=== PATIENT | female | born 1960 | race Hispanic/Latino ===

== ENCOUNTER 2017-03-23 21:49 | Emergency (ER) | payer MEDICAID ==
[~2017-03-23 21:49] MED LIST: CEPH500C2 PO; FLUT15OI4 NASAL; IPRA4AER IH; LISI-613 PO; METH4TAB3 PO; PANT40TA PO; TRAZ150T79 PO
[2017-03-23 22:25] LABS: BASOPHILS % (AUTO) 0.5 % (0.0-5.0); EOSINOPHILS % (AUTO) 1.2 % (0.0-8.0); HEMATOCRIT 33.2 % (36-48); LYMPHOCYTES % (AUTO) 11.4 % (21.0-51.0); MEAN CORPUSCULAR HEMOGLOBIN 30.4 pg (27.0-33.0); MEAN CORPUSCULAR HGB CONC 34.5 g/dL (32.0-36.0); MEAN CORPUSCULAR VOLUME 88.3 fL (79-99); MONOCYTES % (AUTO) 4.2 % (3.0-13.0); NEUTROPHILS % (AUTO) 82.7 % (40.0-77.0); PLATELET COUNT (AUTO) 263 K/uL (130-400); RED BLOOD CELL COUNT(AUTO) 3.76 MIL/uL (4.00-5.50); RED CELL DISTRIBUTION WIDTH 14.1 % (11.0-15.5)
[2017-03-23 22:40] LABS: INR 0.92 (0.85-1.15); PARTIAL THROMBOPLASTIN TIME 30.7 SEC (26.3-35.5); PROTHROMBIN TIME 9.7 SEC (9.6-11.6)
[2017-03-23 22:41] LABS: CREATININE 0.6 mg/dL (0.5-1.5); POTASSIUM 3.8 mmol/L (3.5-5.1)
[2017-03-23 22:54] LABS: ALBUMIN 3.3 g/dL (3.5-5.0); BILIRUBIN,TOTAL 0.2 mg/dL (0.2-1.0); TOTAL PROTEIN, SERUM 7.3 g/dL (6.0-8.3)
[2017-03-23] MEDS ORDERED: LIDOCAINE HCL 2% VISCOUS 15 ML UDCUP ONE (23:03)
[2017-03-23] MEDS ORDERED: MAG HYDROX/AL HYDROX/SIMETH ES 30 ML SUSP UDCUP ONE (23:03)
== END 2017-03-24 02:03 | disposition home or self-care (01) ==
LOC: EDH 21:49
DX: K29.00 Acute gastritis without bleeding (principal); E87.1 Hypo-osmolality and hyponatremia; J44.9 Chronic obstructive pulmonary disease, unspecified; I10 Essential (primary) hypertension; M19.90 Unspecified osteoarthritis, unspecified site; Z88.1 Allergy status to other antibiotic agents
CPT/HCPCS: 36415; 71045; 80053; 82550; 82553; 83874; 84484 ×2; 85025; 85610; 85730; 93005 ×2; 99291; G0480

== ENCOUNTER 2017-04-03 15:47 | Emergency (ER) | payer MEDICAID ==
[2017-04-03 16:10] LABS: BASOPHILS % (AUTO) 0.8 % (0.0-5.0); EOSINOPHILS % (AUTO) 1.2 % (0.0-8.0); HEMATOCRIT 36.1 % (36-48); LYMPHOCYTES % (AUTO) 18.8 % (21.0-51.0); MEAN CORPUSCULAR HEMOGLOBIN 30.7 pg (27.0-33.0); MEAN CORPUSCULAR HGB CONC 34.3 g/dL (32.0-36.0); MEAN CORPUSCULAR VOLUME 89.3 fL (79-99); MONOCYTES % (AUTO) 3.4 % (3.0-13.0); NEUTROPHILS % (AUTO) 75.8 % (40.0-77.0); PLATELET COUNT (AUTO) 463 K/uL (130-400); RED BLOOD CELL COUNT(AUTO) 4.05 MIL/uL (4.00-5.50); RED CELL DISTRIBUTION WIDTH 14.6 % (11.0-15.5); WHITE BLOOD COUNT (AUTO) 10.7 K/uL (4.8-10.8)
[2017-04-03 16:29] LABS: ALBUMIN 3.5 g/dL (3.5-5.0); BILIRUBIN,TOTAL 0.1 mg/dL (0.2-1.0); CREATININE 0.5 mg/dL (0.5-1.5); POTASSIUM 4.2 mmol/L (3.5-5.1); TOTAL PROTEIN, SERUM 7.8 g/dL (6.0-8.3)
== END 2017-04-03 17:24 | disposition home or self-care (01) ==
LOC: EDH 15:47
DX: F10.129 Alcohol abuse with intoxication, unspecified (principal); K29.70 Gastritis, unspecified, without bleeding; E87.1 Hypo-osmolality and hyponatremia; J44.9 Chronic obstructive pulmonary disease, unspecified; M19.90 Unspecified osteoarthritis, unspecified site; Z88.1 Allergy status to other antibiotic agents; Z72.0 Tobacco use
CPT/HCPCS: 36415; 71045; 80053; 82550; 82553; 83690; 84484; 85025; 93005; 99285; G0480

== ENCOUNTER 2018-09-16 13:30 | Emergency (ER) | payer MEDICAID ==
[2018-09-16] MEDS ORDERED: DOXYCYCLINE HYCLATE 100 MG TABLET PO ONE (13:54)
[2018-09-16] MEDS ORDERED: METHYLPREDNISOLONE SOD SUCC 125MG/2ML VIAL ONE (13:54)
[2018-09-16] MEDS ORDERED: CEFTRIAXONE SODIUM 1 GM ONE (13:55)
[2018-09-16] MEDS ORDERED: IPRATROPIUM/ALBUTEROL SULFATE 3 ML SOLUTION IH ONE ×2 (13:55→17:07)
[2018-09-16 14:01] LABS: BASOPHILS % (AUTO) 0.4 % (0.0-5.0); EOSINOPHILS % (AUTO) 1.2 % (0.0-8.0); HEMATOCRIT 35.1 % (36-48); LYMPHOCYTES % (AUTO) 6.2 % (21.0-51.0); MEAN CORPUSCULAR HEMOGLOBIN 32.1 pg (27.0-33.0); MEAN CORPUSCULAR HGB CONC 33.9 g/dL (32.0-36.0); MEAN CORPUSCULAR VOLUME 94.7 fL (79-99); NEUTROPHILS % (AUTO) 90.2 % (40.0-77.0); PLATELET COUNT (AUTO) 268 K/uL (130-400); RED BLOOD CELL COUNT(AUTO) 3.71 MIL/uL (4.00-5.50); RED CELL DISTRIBUTION WIDTH 13.1 % (11.0-15.5); WHITE BLOOD COUNT (AUTO) 15.5 K/uL (4.8-10.8)
[2018-09-16 14:07] LABS: ALBUMIN 3.4 g/dL (3.5-5.0); BILIRUBIN,TOTAL 0.5 mg/dL (0.2-1.0); CREATININE 0.5 mg/dL (0.5-1.5); POTASSIUM 3.9 mmol/L (3.5-5.1); TOTAL PROTEIN, SERUM 7.3 g/dL (6.0-8.3)
[2018-09-16] MEDS ORDERED: SODIUM CHLORIDE 0.9% 250 ML IV ONE (14:27)
[2018-09-16 14:50] LABS: APPEARANCE,URINE Clear (CLEAR); BILIRUBIN,URINE Negative (NEGATIVE); COLOR,URINE Yellow (YELLOW); GLUCOSE, URINE (UA) Negative (NEGATIVE); KETONES,URINE Negative (NEGATIVE); LEUKOCYTE ESTERASE ,URINE Negative (NEGATIVE); NITRATE,URINE Negative (NEGATIVE); OCCULT BLOOD,URINE Negative (NEGATIVE); PROTEIN,URINE Negative (NEGATIVE); UROBILINOGEN,URINE 0.2 mg/dL (0.2-1.0)
[2018-09-16 14:58] LABS: AMPHET/METH SCREEN,URINE NEGATIVE (NEGATIVE); BARBITURATE SCREEN, URINE NEGATIVE (NEGATIVE); BENZODIAZEPINES SCREEN,URINE NEGATIVE (NEGATIVE); CANNABINOID SCREEN,URINE NEGATIVE (NEGATIVE); COCAINE SCREEN,URINE NEGATIVE (NEGATIVE); OPIATE SCREEN,URINE NEGATIVE (NEGATIVE); PHENCYCLIDINE SCREEN,URINE NEGATIVE (NEGATIVE)
[2018-09-16] MEDS ORDERED: ONDANSETRON HCL 4 MG/2 ML VIAL ONE (15:54)
== END 2018-09-16 17:34 | disposition home or self-care (01) ==
LOC: EDH 13:30
DX: J44.1 Chronic obstructive pulmonary disease with (acute) exacerbation (principal); E87.1 Hypo-osmolality and hyponatremia; I10 Essential (primary) hypertension; Z72.0 Tobacco use; Z88.1 Allergy status to other antibiotic agents
CPT/HCPCS: 36415; 71045; 71250; 80053; 80305; 81003; 84295; 84300; 84484; 85025; 87804 ×2; 93005; 94640 ×2; 96374; 96375; 99285; J0696; J2405; J2930; J7030

== ENCOUNTER 2018-12-04 06:18 | Day surgery (SDC) | payer MEDICAID ==
[~2018-12-04] VITALS: Ht 152.4 cm; Wt 49.4 kg
[~2018-12-04 06:18] MED LIST changes: +AMLO5TAB9 PO; -CEPH500C2 PO; -FLUT15OI4 NASAL; +IBUP-2784 PO; -IPRA4AER IH; -LISI-613 PO; +LISI30TA4 PO; -METH4TAB3 PO; +NAPR-1023 PO; +NEBULIZER; -PANT40TA PO; +SODIUM CHLORIDE 0.9% 1000ML 1,000 ML IV ONE; -TRAZ150T79 PO; +VENTOLIN
[2018-12-04 07:28] VITALS: BP 120/66
[2018-12-04] MEDS ORDERED: PROPOFOL 10 MG/ML 20ML VIAL IV ONE (08:40)
[2018-12-04] MEDS ORDERED: LIDOCAINE HCL 1% 20 ML VIAL ONE (08:40)
[2018-12-04 08:46] VITALS: BP 103/58
[2018-12-04 08:51] VITALS: BP 111/54
[2018-12-04 08:56] VITALS: BP 140/61
[2018-12-04 09:01] VITALS: BP 137/78
--- NOTE | 2018-12-04 09:18 | NUR ---
PT. LEFT VIA WHEELCHAIR IN PVT CAR INSTRUCTIONS GIVEN TO DAUGHTER WITH F/U APPT. NO COMPLICATION UPON D/C PT STABLE
== END 2018-12-04 09:18 | disposition home or self-care (01) ==
LOC: DAH 06:18 → ENDO 06:18
PROVIDERS: ATTEND Internal Medicine
DX: K21.0 Gastro-esophageal reflux disease with esophagitis (principal); K29.80 Duodenitis without bleeding; K29.50 Unspecified chronic gastritis without bleeding; K22.2 Esophageal obstruction; K44.9 Diaphragmatic hernia without obstruction or gangrene; K31.89 Other diseases of stomach and duodenum; K64.9 Unspecified hemorrhoids; I10 Essential (primary) hypertension; M19.90 Unspecified osteoarthritis, unspecified site; J44.9 Chronic obstructive pulmonary disease, unspecified; F17.210 Nicotine dependence, cigarettes, uncomplicated; Z80.0 Family history of malignant neoplasm of digestive organs; Z88.0 Allergy status to penicillin; Z79.899 Other long term (current) drug therapy
CPT/HCPCS: 43239; 43249; 88305; A4215; A4221; A4222; A4223; A4606; A4615; A4663; J2704; J7030

== ENCOUNTER 2019-06-15 11:07 | Emergency (ER) | payer MEDICAID ==
[~2019-06-15 11:07] MED LIST changes: -SODIUM CHLORIDE 0.9% 1000ML 1,000 ML IV ONE
[2019-06-15] MEDS ORDERED: MORPHINE SULFATE 4 MG/1ML SYG ONE (11:27)
[2019-06-15 11:52] LABS: APPEARANCE,URINE Clear (CLEAR); BILIRUBIN,URINE Negative (NEGATIVE); COLOR,URINE Yellow (YELLOW); GLUCOSE, URINE (UA) Negative (NEGATIVE); KETONES,URINE Negative (NEGATIVE); LEUKOCYTE ESTERASE ,URINE Trace (NEGATIVE); NITRATE,URINE Negative (NEGATIVE); OCCULT BLOOD,URINE Negative (NEGATIVE); PROTEIN,URINE Negative (NEGATIVE); UROBILINOGEN,URINE 0.2 mg/dL (0.2-1.0)
[2019-06-15 12:13] LABS: BACTERIA,URINE Rare /HPF (None Seen); RBC,URINE 0-1 /HPF (0-1); SQUAMOUS EPITHELIAL CELL,UR Rare /HPF (0-2); WBC,URINE 0-1 /HPF (0-1)
[2019-06-15 12:33] LABS: BASOPHILS % (AUTO) 0.6 % (0.0-5.0); EOSINOPHILS % (AUTO) 0.1 % (0.0-8.0); HEMATOCRIT 34.7 % (36-48); LYMPHOCYTES % (AUTO) 8.4 % (21.0-51.0); MEAN CORPUSCULAR VOLUME 88.3 fL (79-99); MONOCYTES % (AUTO) 4.6 % (3.0-13.0); NEUTROPHILS % (AUTO) 85.7 % (40.0-77.0); PLATELET COUNT (AUTO) 325 K/uL (130-400); RED BLOOD CELL COUNT(AUTO) 3.93 MIL/uL (4.00-5.50); RED CELL DISTRIBUTION WIDTH 15.6 % (11.0-15.5); WHITE BLOOD COUNT (AUTO) 8.1 K/uL (4.8-10.8)
[2019-06-15 13:12] LABS: ALBUMIN 3.6 g/dL (3.5-5.0); BILIRUBIN,DIRECT 0.1 mg/dL (0.0-0.3); BILIRUBIN,TOTAL 0.2 mg/dL (0.2-1.0)
[2019-06-15 13:18] LABS: CREATININE 0.7 mg/dL (0.5-1.5); POTASSIUM 4.3 mmol/L (3.5-5.1)
== END 2019-06-15 14:52 | disposition home or self-care (01) ==
LOC: EDH 11:07
DX: R10.9 Unspecified abdominal pain (principal); F10.21 Alcohol dependence, in remission; R30.0 Dysuria; R35.0 Frequency of micturition; R11.2 Nausea with vomiting, unspecified; R42 Dizziness and giddiness; J44.9 Chronic obstructive pulmonary disease, unspecified; I10 Essential (primary) hypertension; M19.90 Unspecified osteoarthritis, unspecified site; Z88.1 Allergy status to other antibiotic agents; Z72.0 Tobacco use
CPT/HCPCS: 36415; 74176; 80048; 80076; 81001; 85025; J2270

== ENCOUNTER 2020-08-13 04:12 | Observation (INO) | payer MEDICAID ==
[~2020-08-13] VITALS: Ht 152.4 cm; Wt 54.9 kg
[~2020-08-13 04:12] MED LIST changes: +AMLO-257 PO; -AMLO5TAB9 PO
[2020-08-13] MEDS ORDERED: MORPHINE 4 MG SYG ONE (04:56)
[2020-08-13] MEDS ORDERED: MORPHINE 4 MG SYG IM ONE (05:00)
[2020-08-13 05:01] LABS: BASOPHILS % (AUTO) 0.1 % (0.0-5.0); EOSINOPHILS % (AUTO) 1.5 % (0.0-8.0); HEMATOCRIT 30.8 % (36-48); LYMPHOCYTES % (AUTO) 3.4 % (21.0-51.0); MEAN CORPUSCULAR HGB CONC 34.4 g/dL (32.0-36.0); MEAN CORPUSCULAR VOLUME 90.1 fL (79-99); MONOCYTES % (AUTO) 3.9 % (3.0-13.0); NEUTROPHILS % (AUTO) 90.5 % (40.0-77.0); PLATELET COUNT (AUTO) 314 K/uL (130-400); RED BLOOD CELL COUNT(AUTO) 3.42 MIL/uL (4.00-5.50); RED CELL DISTRIBUTION WIDTH 12.3 % (11.0-15.5); WHITE BLOOD COUNT (AUTO) 14.8 K/uL (4.8-10.8)
[2020-08-13 05:14] LABS: ALBUMIN 2.9 g/dL (3.5-5.0); BILIRUBIN,TOTAL 0.2 mg/dL (0.2-1.0); CREATININE 0.6 mg/dL (0.5-1.5); POTASSIUM 3.6 mmol/L (3.5-5.1); TOTAL PROTEIN, SERUM 7.5 g/dL (6.0-8.3)
[2020-08-13] MEDS ORDERED: SOLU-MEDROL 40MG VIAL ONE (05:40)
[2020-08-13] MEDS ORDERED: KETOROLAC 15MG/ML VIAL (15MG/ML) ONE (05:40)
[2020-08-13] MEDS ORDERED: NITROGLYCERIN 0.4 MG SL TAB SL PRN (06:00)
[2020-08-13] MEDS ORDERED: SOLU-MEDROL 40MG VIAL IVP ONE (06:00)
[2020-08-13] MEDS ORDERED: ACETAMINOPHEN 325 MG TAB PO PRN ×2 (06:00)
[2020-08-13] MEDS ORDERED: 0.9%NACL 1000ML 1,000 ML IV SCH (06:00)
[2020-08-13] MEDS ORDERED: ONDANSETRON 4MG INJ IV PRN (06:00)
[2020-08-13] MEDS ORDERED: HYDROCODONE/ACETAMINOPHEN 5/325 MG TAB PO PRN ×2 (06:00)
[2020-08-13] MEDS ORDERED: KETOROLAC 15MG/ML VIAL (15MG/ML) IV ONE (06:00)
[2020-08-13 06:07] VITALS: BP 139/63
[2020-08-13 06:07] LABS: ERYTHROCYTE SEDIMENTATION RATE 80 MM/HR (0-30)
[2020-08-13] MEDS ORDERED: 0.9%NACL 1000ML 1,000 ML IV ONE (06:11)
[2020-08-13] MEDS: 0.9%NACL 1000ML 1,000 ML IV SCH ×2 (06:44→06:45)
[2020-08-13] MEDS ORDERED: KETOROLAC 15MG/ML VIAL (15MG/ML) IV PRN (07:00)
[2020-08-13] MEDS ORDERED: AMLO-257 PO (07:00)
[2020-08-13] MEDS ORDERED: METH25VI67 IJ (07:00)
[2020-08-13] MEDS ORDERED: IPRATROPIUM/ALBUTEROL SULFATE 3 ML SOLUTION IH PRN (07:00)
[2020-08-13] MEDS ORDERED: LISI30TA4 PO (07:00)
[2020-08-13] MEDS ORDERED: INSULIN HUMULIN R 100 UNIT/ML 3ML SQ SCH (07:30)
[2020-08-13 08:32] VITALS: BP 142/64
[2020-08-13] MEDS ORDERED: FAMOTIDINE 20MG TAB PO SCH (09:00)
[2020-08-13] MEDS ORDERED: ENOXAPARIN SODIUM 30 MG/0.3 ML SQ SCH (09:00)
[2020-08-13 09:39] VITALS: BP 145/60
[2020-08-13] MEDS ORDERED: ACETAMINOPHEN 500 MG TABLET PO SCH (11:30)
== END 2020-08-13 09:30 | disposition left against medical advice (07) ==
LOC: EDH 04:12 → INTOOBSV 05:43 → EDHIP 05:43
PROVIDERS: ADMIT Internal Medicine; ATTEND Internal Medicine
DX: M06.821 Other specified rheumatoid arthritis, right elbow (principal); E11.9 Type 2 diabetes mellitus without complications; E87.1 Hypo-osmolality and hyponatremia; F41.0 Panic disorder [episodic paroxysmal anxiety]; J44.9 Chronic obstructive pulmonary disease, unspecified; F17.210 Nicotine dependence, cigarettes, uncomplicated; I10 Essential (primary) hypertension; Z79.01 Long term (current) use of anticoagulants; Z79.899 Other long term (current) drug therapy; Z82.3 Family history of stroke; Z82.49 Family history of ischemic heart disease and other diseases of the circulatory system; Z82.5 Family history of asthma and other chronic lower respiratory diseases; Z83.3 Family history of diabetes mellitus
CPT/HCPCS: 36415; 71046; 73080; 73130; 80053; 82948; 83605; 83930; 84145; 84550; 85025; 85651; 86140; 93971; 94664; 96361; 96372; 96374; 96375; 99285; G0378 ×4; J1650; J1885 ×2; J2270; J2920; J7030 ×2

== ENCOUNTER 2022-01-16 20:31 | Emergency (ER) | payer MEDICAID ==
[~2022-01-16] VITALS: Ht 154.9 cm; Wt 59.0 kg
[~2022-01-16 20:31] MED LIST changes: +METH25VI67 IJ
[2022-01-16 23:30] LABS: BASOPHILS % (AUTO) 0.4 % (0.0-5.0); EOSINOPHILS % (AUTO) 1.7 % (0.0-8.0); HEMATOCRIT 37.2 % (36-48); LYMPHOCYTES % (AUTO) 30.9 % (21.0-51.0); MEAN CORPUSCULAR HEMOGLOBIN 31.9 pg (27.0-33.0); MEAN CORPUSCULAR HGB CONC 34.9 g/dL (32.0-36.0); MEAN CORPUSCULAR VOLUME 91.4 fL (79-99); MONOCYTES % (AUTO) 4.7 % (3.0-13.0); NEUTROPHILS % (AUTO) 61.9 % (40.0-77.0); PLATELET COUNT (AUTO) 258 K/uL (130-400); RED BLOOD CELL COUNT(AUTO) 4.07 MIL/uL (4.00-5.50); RED CELL DISTRIBUTION WIDTH 14.2 % (11.0-15.5); WHITE BLOOD COUNT (AUTO) 10.1 K/uL (4.8-10.8)
[2022-01-16 23:39] LABS: CREATININE 0.7 mg/dL (0.5-1.5); POTASSIUM 3.5 mmol/L (3.5-5.1)
[2022-01-17] MEDS ORDERED: ACET-66 PO (00:05)
[2022-01-17] MEDS ORDERED: DiphenhydrAMINE HCL 50 MG/ML VIAL IV ONE (02:00)
[2022-01-17] MEDS ORDERED: SOLU-MEDROL 40MG VIAL IVP ONE (02:00)
[2022-01-17] MEDS ORDERED: METOCLOPRAMIDE 10 MG/2 ML VIAL IVP ONE (02:00)
[2022-01-17] MEDS ORDERED: KETOROLAC 30MG VIAL (30MG/ML) IVP ONE (02:00)
[2022-01-17] MEDS ORDERED: IBUP-2070 PO (04:08)
[2022-01-17 06:01] VITALS: BP 127/68
== END 2022-01-17 06:51 | disposition home or self-care (01) ==
LOC: EDH 20:31
DX: R51.9 Headache, unspecified (principal); I10 Essential (primary) hypertension; J44.9 Chronic obstructive pulmonary disease, unspecified; M19.90 Unspecified osteoarthritis, unspecified site; Z79.1 Long term (current) use of non-steroidal anti-inflammatories (NSAID); Z79.52 Long term (current) use of systemic steroids; Z79.899 Other long term (current) drug therapy; Z88.0 Allergy status to penicillin
CPT/HCPCS: 99284; 96374; 96375; 70450; 80048; 85025; 85651; 36415; J1200; J2920; J1885; J2765

== ENCOUNTER 2023-07-05 00:35 | Emergency (ER) | payer MEDICAID ==
[~2023-07-05 00:35] MED LIST changes: +ACET-66 PO; +IBUP-2070 PO
[2023-07-05 00:55] LABS: BASOPHILS # (AUTO) 0.04 K/uL (0.00-0.20); BASOPHILS % (AUTO) 0.4 % (0.0-5.0); EOSINOPHILS % (AUTO) 2.2 % (0.0-8.0); HEMATOCRIT 34.9 % (36-48); IMMATURE GRANULOCYTE ABSOLUTE 0.03 K/uL (0-1); LYMPHOCYTES # (AUTO) 3.3 K/uL (1.0-4.8); MEAN CORPUSCULAR HEMOGLOBIN 29.2 pg (27.0-33.0); MEAN CORPUSCULAR VOLUME 83.5 fL (79-99); MONOCYTES # (AUTO) 0.4 K/uL (0.1-1.0); MONOCYTES % (AUTO) 4.1 % (3.0-13.0); PLATELET COUNT (AUTO) 274 K/uL (130-400); RED BLOOD CELL COUNT(AUTO) 4.18 MIL/uL (4.00-5.50)
[2023-07-05] MEDS: FAMOTIDINE 20MG VIAL IV ONE (01:03)
[2023-07-05] MEDS: ASPIRIN 325MG TAB PO ONE (01:03)
[2023-07-05] MEDS: NITROGLYCERIN 0.4 MG SL TAB SL PRN (01:03)
[2023-07-05] MEDS: ONDANSETRON 4MG INJ IVP ONE (01:03)
[2023-07-05 01:04] LABS: CREATININE 0.9 mg/dL (0.5-1.0); POTASSIUM 3.1 mmol/L (3.5-5.1)
[2023-07-05] MEDS: ATORVASTATIN 40 MG TABLET PO ONE (01:04)
[2023-07-05 01:07] LABS: INR 0.94 (0.85-1.15); PROTHROMBIN TIME 11.1 SEC (9.6-11.6)
[2023-07-05 01:08] LABS: PARTIAL THROMBOPLASTIN TIME 33.1 SEC (26.3-35.5)
[2023-07-05] MEDS: MORPHINE 2 MG SYG IVP ONE (01:17)
[2023-07-05 01:25] LABS: BAND NEUTROPHILS % (MANUAL) 1 % (0-2); LYMPHOCYTES % (MANUAL) 37 % (22-44); MAN.DIFF COMMENT-IMPRESSION MANUAL DIFFERENTIAL; MONOCYTES % (MANUAL) 4 % (2-9); REACTIVE LYMPHOCYTES 2 % (0-0); SEGMENTED NEUTROPHILS % 56 % (40-70); TOTAL CELLS COUNTED 100
[2023-07-05 01:26] LABS: PLATELET MORPHOLOGY COMMENT ADEQUATE
[2023-07-05 01:44] LABS: ADD UA MICROSCOPIC NO; APPEARANCE,URINE CLEAR (CLEAR); BILIRUBIN,URINE NEGATIVE (NEGATIVE); COLOR,URINE COLORLESS (YELLOW); GLUCOSE, URINE (UA) NEGATIVE (NEGATIVE); KETONES,URINE NEGATIVE (NEGATIVE); LEUKOCYTE ESTERASE ,URINE NEGATIVE Leu/uL (NEGATIVE); NITRATE,URINE NEGATIVE (NEGATIVE); OCCULT BLOOD,URINE NEGATIVE (NEGATIVE); PROTEIN,URINE NEGATIVE (NEGATIVE); UROBILINOGEN,URINE 0.2 mg/dL (0.2-1.0)
[2023-07-05] MEDS: 0.9%NACL 1000ML 1,000 ML IV ONE (02:02)
[2023-07-05] MEDS: LIDOCAINE HCL 2% VISCOUS 15 ML UDCUP PO ONE (02:11)
[2023-07-05] MEDS: MAG/ALUM/SIMETH 30 ML UDCUP PO ONE (02:11)
[2023-07-05] MEDS: DICYCLOMINE HCL 10 MG/5 ML ML PO ONE (02:12)
[2023-07-05] MEDS: KETOROLAC 30MG VIAL (30MG/ML) IVP ONE (03:34)
[2023-07-05 04:10] VITALS: BP 117/63; PULSE 62; RESP 16; O2SAT 98
== END 2023-07-05 04:14 | disposition home or self-care (01) ==
LOC: EDH 00:35
DX: R07.89 Other chest pain (principal); I10 Essential (primary) hypertension; J44.9 Chronic obstructive pulmonary disease, unspecified; M19.90 Unspecified osteoarthritis, unspecified site; Z79.899 Other long term (current) drug therapy; Z98.890 Other specified postprocedural states; Z88.0 Allergy status to penicillin
CPT/HCPCS: 99285; 74176; 96374; 96375; 96361; 71045; 82550; 84484; 80048; 83690; 85025; 85610; 85730; 81003; 36415; 93005; J2270; J7030; J2405; J1885; S0028; J3490

== ENCOUNTER 2023-09-27 18:59 | Emergency (ER) | payer MEDICAID ==
[~2023-09-27] VITALS: Ht 165.1 cm; Wt 59.0 kg
[2023-09-27 19:39] LABS: BASOPHILS # (AUTO) 0.08 K/uL (0.00-0.20); BASOPHILS % (AUTO) 0.7 % (0.0-5.0); EOSINOPHILS # (AUTO) 0.81 K/uL (0.00-0.70); EOSINOPHILS % (AUTO) 7.2 % (0.0-8.0); HEMATOCRIT 36.5 % (36-48); IMMATURE GRANULOCYTE ABSOLUTE 0.03 K/uL (0-1); LYMPHOCYTES # (AUTO) 3.7 K/uL (1.0-4.8); LYMPHOCYTES % (AUTO) 32.6 % (21.0-51.0); MEAN CORPUSCULAR HEMOGLOBIN 28.8 pg (27.0-33.0); MEAN CORPUSCULAR HGB CONC 34.2 g/dL (32.0-36.0); MEAN CORPUSCULAR VOLUME 84.1 fL (79-99); MONOCYTES # (AUTO) 0.4 K/uL (0.1-1.0); MONOCYTES % (AUTO) 3.5 % (3.0-13.0); NEUTROPHILS # (AUTO) 6.3 K/uL (1.8-7.7); NEUTROPHILS % (AUTO) 55.7 % (40.0-77.0); PLATELET COUNT (AUTO) 341 K/uL (130-400); RED BLOOD CELL COUNT(AUTO) 4.34 MIL/uL (4.00-5.50); WHITE BLOOD COUNT (AUTO) 11.3 K/uL (4.8-10.8)
[2023-09-27 19:46] LABS: APPEARANCE,URINE CLEAR (CLEAR); BILIRUBIN,URINE NEGATIVE (NEGATIVE); COLOR,URINE COLORLESS (YELLOW); GLUCOSE, URINE (UA) NEGATIVE (NEGATIVE); KETONES,URINE NEGATIVE (NEGATIVE); LEUKOCYTE ESTERASE ,URINE 25 Leu/uL (NEGATIVE); NITRATE,URINE NEGATIVE (NEGATIVE); OCCULT BLOOD,URINE NEGATIVE (NEGATIVE); PH,URINE 5.5 (5.0-8.0); PROTEIN,URINE NEGATIVE (NEGATIVE); UROBILINOGEN,URINE 0.2 mg/dL (0.2-1.0)
[2023-09-27 19:48] LABS: ADD UA MICROSCOPIC YES
[2023-09-27 19:50] LABS: BACTERIA,URINE RARE /HPF (None Seen); MUCUS,URINE RARE LPF (None Seen); RBC,URINE 0-1 /HPF (0-1); SQUAMOUS EPITHELIAL CELL,UR RARE /HPF (0-2); WBC,URINE 0-1 /HPF (0-1)
[2023-09-27 19:52] LABS: CREATININE 0.8 mg/dL (0.5-1.0); POTASSIUM 3.7 mmol/L (3.5-5.1)
[2023-09-27 19:57] LABS: B-TYPE NATRIURETIC PEPTIDE 52 pg/mL (0-100)
[2023-09-27] MEDS: PANTOPRAZOLE 40 MG/VIAL IVP ONE (20:45)
[2023-09-27] MEDS: KETOROLAC 15MG/ML VIAL (15MG/ML) IV ONE (20:45)
[2023-09-27] MEDS ORDERED: NITR100C4 PO (20:55)
[2023-09-27] MEDS ORDERED: IBUP-2071 PO (21:13)
[2023-09-27 21:45] VITALS: BP 128/63; PULSE 72; RESP 22; O2SAT 97
== END 2023-09-27 21:54 | disposition home or self-care (01) ==
LOC: EDH 18:59
DX: R07.89 Other chest pain (principal); E87.1 Hypo-osmolality and hyponatremia; N39.0 Urinary tract infection, site not specified; M06.9 Rheumatoid arthritis, unspecified; I10 Essential (primary) hypertension; J44.9 Chronic obstructive pulmonary disease, unspecified; Z79.899 Other long term (current) drug therapy; Z88.0 Allergy status to penicillin
CPT/HCPCS: 99285; 96374; 71045; 96375; 82550; 84484; 80048; 83880; 85025; 81001; 36415; 93005; J2470; J1885

== ENCOUNTER 2024-03-04 06:23 | Emergency (ER) | payer MEDICAID ==
[~2024-03-04] VITALS: Ht 152.4 cm; Wt 59.0 kg
[~2024-03-04 06:23] MED LIST changes: +IBUP-2071 PO; +NITR100C4 PO
--- NOTE | 2024-03-04 06:28 | NUR ---
UA CUP PROVIDED
--- NOTE | 2024-03-04 06:43 | ERN ---
General Chief Complaint: Abdominal Pain Stated Complaint: ABD PAIN, PAINFUL URINATION Time Seen by MD: 06:26 Source: patient History of Present Illness Initial Comments Patient is a 63-year-old female coming in to be evaluated for left flank pain. Patient also states that the pain is present in the suprapubic region. Along with the pain patient also presents with dysuria. Allergies: Coded Allergies: amoxicillin (Unverified Allergy, Unknown, 09/16/18) Home Meds Active Scripts Nitrofurantoin Monohyd/M-Cryst (Macrobid 100 mg Capsule) 100 Mg Capsule, 1 CAP PO BID for 7 Days, #14 CAP 0 Refills Prov:KATARINA PARKS MD 03/04/24 Ibuprofen (Ibuprofen) 800 Mg Tablet, 800 MG PO Q8H PRN for PAIN, #30 TAB 0 Refills Prov:THEODORE SPEAR MD 09/27/23 Nitrofurantoin Monohyd/M-Cryst (Macrobid 100 mg Capsule) 100 Mg Capsule, 100 MG PO BID for 7 Days, #14 CAP Prov:THEODORE SPEAR MD 09/27/23 Ibuprofen (Ibuprofen) 600 Mg Tablet, 600 MG PO TID PRN for PAIN, #15 TAB 0 Refills Prov:IRVING MISTRY MD 01/17/22 Acetaminophen (Tylenol) 500 Mg Tab, 1000 MG PO BID PRN for HEADACHE for 10 Days, #20 TAB Prov:CIRO LECHUGA 01/17/22 Reported Medications Methotrexate Sodium/Pf (Methotrexate 50 mg/2 ml Vial) 25 Mg/1 Ml Vial, 25 MG IJ QWEEK, VIAL 08/13/20 Lisinopril (Lisinopril) 30 Mg Tablet, 30 MG PO DAILY, TAB 08/13/20 Amlodipine Besylate (Amlodipine Besylate) 5 Mg Tablet, 5 MG PO DAILY, TAB 08/13/20 [Nebulizer] No Conflict Check 12/03/18 [Ventolin ] No Conflict Check 12/03/18 Amlodipine Besylate (Amlodipine Besylate) 5 Mg Tablet, 5 MG PO DAILY, TAB 12/03/18 Naproxen (Naproxen) 500 Mg Tablet, 500 MG PO BID, TAB 12/03/18 Ibuprofen (Ibuprofen 200 mg Tablet) 200 Mg Tablet, 200 MG PO DAILY PRN for PAIN LEVEL 6 TO 10, TAB 12/03/18 Lisinopril (Lisinopril) 30 Mg Tablet, 30 MG PO DAILY, TAB 12/03/18 Past Medical History Past Medical History: Arthritis, COPD, Diabetes-Type II, High Cholesterol, Hypertension Medical History Other: VERTIGO Past Surgical History: None Family History Family History: Negative Social History Social History: ETOH Female( History) History: Not Applicable ROS Dictation CONSTITUTIONAL: No chills, no fever, no weakness, no diaphoresis, no malaise. HEAD/FACE: No signs of trauma. EENT: No eye pain, no blurred vision, no tearing, no double vision, no ear pain, no ear discharge, no nose pain, no nasal congestion, no throat pain, no throat swelling, no mouth pain. RESPIRATORY: No cough, no orthopnea, no SOB, no stridor, no wheezing. CARDIOVASCULAR: No chest pain, no edema, no palpitations, no syncope. GASTROINTESTINAL/ABDOMINAL: abdominal pain, no constipation, no diarrhea, no nausea, no vomiting. GENITOURINARY: No abnormal discharge, dysuria, no frequent urination, no hematuria. No complaints of pain in the genitals. MUSCULOSKELETAL: No back pain, no gout, no joint pain, no joint swelling, no muscle pain, no muscle stiffness, no neck pain. INTEGUMENTARY: No change in color, no change in hair/nails, no dryness, no lesion, no lumps, no rash. NEUROLOGICAL/PSYCH: No anxiety, not depressed, no emotional problem, no headache, no numbness, no pre-existing deficit, no history of seizures, no tremors, no weakness. HEMATOLOGIC/LYMPHATIC: Not anemic, no history of blood clots, no apparent bleeding, no bruising, glands not swollen. All Systems Negative, Except as Noted. Physical Exam Physical Exam Dictation VITAL SIGNS: Reviewed. GENERAL APPEARANCE: Alert, oriented x3, no acute distress, obese. HEAD AND FACE: Non-traumatic. EYES: PERRL, pink conjunctivas, eyelid no trauma, anterior chamber clear. EARS: Pinnas intact and no signs of trauma or erythema. Ear canals clear and no discharge. TMs no erythema. NOSE: No discharge, no bleeding. OROPHARYNX: Mouth normal, teeth no caries, tongue pink. Pharynx clear, no erythema. Tonsils no exudates, no abscesses noted. Mucous membrane moist. NECK: Supple, non-tender, no thyromegaly, no masses, no JVD, no bruits. BREAST: Deferred. CHEST: No tenderness, no crepitus, no paradoxical movement, no retractions. LUNGS: Clear, well-ventilated, symmetric, no rales, no wheezing, no rhonchi, no stridor, good breath sounds bilaterally. HEART: Regular rate, regular rhythm, no murmur, no gallops. VASCULAR: No peripheral edema. ABDOMEN: Soft, positive bowel sounds, nondistended, no guarding, left lower abdominal tenderness, suprapubic tenderness, no rebound, no masses no hepatomegaly, no splenomegaly, no Villavicencio's sign, no hernias. RECTAL: Deferred. GENITAL: Deferred. NEUROLOGICAL: Normal speech, gross motor function intact, gross sensory function intact. MUSCULOSKELETAL: Neck nontender, full range of motion, back nontender, full range of motion. EXTREMITIES: Nontender, full range of motion. SKIN: Color pink, dry, no turgor, no rash, no lacerations, no abrasions, no contusions. LYMPHATICS: Deferred. Results Laboratory and Microbiology Lab and Micro Result Laboratory Tests Test 03/04/24 06:40 03/04/24 08:03 03/04/24 09:42 Urine Color LIGHT-YELLOW (YELLOW) Urine Appearance HAZY (CLEAR) Urine pH 6.0 (5.0-8.0) Urine Specific [place] 1.007 (1.001-1.031) Urine Protein NEGATIVE mg/dL (NEGATIVE) Urine Glucose (UA) NEGATIVE mg/dL (NEGATIVE) Urine Ketones NEGATIVE mg/dL (NEGATIVE) Urine Occult Blood +- (TRACE) (NEGATIVE) H Urine Nitrate NEGATIVE (NEGATIVE) Urine Bilirubin NEGATIVE mg/dL (NEGATIVE) Urine Urobilinogen 0.2 mg/dL (0.2-1.0) Urine Leukocyte Esterase 500 Chel/uL (NEGATIVE) H Urine RBC 6-10 /HPF (0-1) H Urine WBC 51-100 /HPF (0-1) H Urine Squamous Epithelial Cells FEW /HPF (0-2) Urine Bacteria FEW /HPF (None Seen) White Blood Count 12.1 K/uL (4.8-10.8) H Red Blood Count 4.90 MIL/uL (4.00-5.50) Hemoglobin 13.9 g/dL (12.0-16.0) Hematocrit 41.9 % (36-48) Mean Corpuscular Volume 85.5 fL (79-99) Mean Corpuscular Hemoglobin 28.4 pg (27.0-33.0) Mean Corpuscular Hemoglobin Concent 33.2 g/dL (32.0-36.0) Red Cell Distribution Width 13.2 % (11.0-15.5) Platelet Count 348 K/uL (130-400) Mean Platelet Volume 9.4 fL (7.5-10.5) Immature Granulocyte % (Auto) 0.3 % (0-1) Neutrophils (%) (Auto) 74.5 % (40.0-77.0) Lymphocytes (%) (Auto) 17.7 % (21.0-51.0) L Monocytes (%) (Auto) 4.1 % (3.0-13.0) Eosinophils (%) (Auto) 2.8 % (0.0-8.0) Basophils (%) (Auto) 0.6 % (0.0-5.0) Neutrophils # (Auto) 9.0 K/uL (1.8-7.7) H Lymphocytes # (Auto) 2.1 K/uL (1.0-4.8) Monocytes # (Auto) 0.5 K/uL (0.1-1.0) Eosinophils # (Auto) 0.34 K/uL (0.00-0.70) Basophils # (Auto) 0.07 K/uL (0.00-0.20) Absolute Immature Granulocyte (auto 0.04 K/uL (0-1) Nucleated Red Blood Cells 0.0 % (0.0-0.19) Sodium Level 134 mmol/L (136-145) L Potassium Level 4.7 mmol/L (3.5-5.1) Chloride Level 98 mmol/L (101-111) L Carbon Dioxide Level 32 mmol/L (21-32) Blood Urea Nitrogen 7 mg/dL (7-18) Creatinine 0.7 mg/dL (0.5-1.0) Glomerular Filtration Rate Calc 98 mL/min (>90) Random Glucose 112 mg/dL (70-105) H Total Calcium 9.4 mg/dL (8.5-10.1) Lactic Acid Level 0.9 mmol/L (0.8-2.5) Labs Reviewed?: Yes MDM MDM: Differential diagnosis: UTI, PAD Risk of complication and/or morbidity or mortality of patient management: None Medications-Per medication reconciliation Need for hospitalization: Patient does meet criteria for hospitalization. Need for emergency major/minor surgery: No There are no social concerns with this patient. Prescription drug management Prescriptions will include symptomatic care. I independently interpreted the test that were performed, results were reviewed by me and considered findings on radiology if ordered. 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 ED Course Orders Procedure Category Date Status Time Cbc With Differential LAB 03/04/24 Complete 06:30 Urinalysis Profile LAB 03/04/24 Complete 06:30 Ct Abdomen/Pelvis W/O CT 03/04/24 Resulted Contrast 06:30 Basic Metabolic Panel LAB 03/04/24 Complete 06:30 0.9%Nacl 1000ml (Ns PHA 03/04/24 Complete 1000ml) 06:30 Culture Urine AHMET 03/04/24 In Process 07:03 Lactic Acid LAB 03/04/24 Complete 09:32 Ceftriaxone 2gm Vial PHA 03/04/24 Complete (Rocephin 2gm Inj) 10:00 Current Medications Medications (Trade) Dose Ordered Sig/Sheila Route PRN Reason Start Time Stop Time Status Last Admin Dose Admin Ceftriaxone Sodium (Rocephin 2gm Inj) 2 gm ONCE ONCE IVPB 03/04/24 10:00 03/04/24 10:01 DC 03/04/24 10:15 Sodium Chloride 1,000 ml @ 0 mls/hr ONCE ONCE IV 03/04/24 06:30 03/04/24 06:32 DC 03/04/24 08:46 Vital Signs Date Time Temp Pulse Resp B/P (MAP) Pulse Ox O2 Delivery O2 Flow Rate FiO2 03/04/24 08:30 98.4 77 16 115/58 98 Room Air* 0 21 03/04/24 07:52 98.4 77 16 118/61 97 Room Air* 0 21 03/04/24 06:25 98.2 77 16 148/72 97 Room Air DX & DISP Disposition: Discharge Departure Impression: Primary Impression: PAD (peripheral artery disease) Additional Impression: Acute UTI Condition: Stable Scripts Nitrofurantoin Monohyd/M-Cryst (Macrobid 100 mg Capsule) 100 Mg Capsule 1 CAP PO BID for 7 Days, #14 CAP 0 Refills Prov: KATARINA PARKS MD 03/04/24 Referrals: TAMMY DISLA (PCP) KATHIA KULKARNI MD Time of Disposition: 10:47 VENANCIO GONCALVES MD Mar 04, 2024 06:43 KATARINA PARKS MD Mar 04, 2024 09:34
[2024-03-04 07:01] LABS: BILIRUBIN,URINE NEGATIVE (NEGATIVE); COLOR,URINE LIGHT-YELLOW (YELLOW); GLUCOSE, URINE (UA) NEGATIVE (NEGATIVE); KETONES,URINE NEGATIVE (NEGATIVE); LEUKOCYTE ESTERASE ,URINE 500 Leu/uL (NEGATIVE); NITRATE,URINE NEGATIVE (NEGATIVE); PROTEIN,URINE NEGATIVE (NEGATIVE); UROBILINOGEN,URINE 0.2 mg/dL (0.2-1.0)
[2024-03-04 07:02] LABS: APPEARANCE,URINE HAZY (CLEAR)
[2024-03-04 07:10] LABS: ADD UA MICROSCOPIC YES
[2024-03-04 07:12] LABS: BACTERIA,URINE FEW /HPF (None Seen); MUCUS,URINE RARE LPF (None Seen); SQUAMOUS EPITHELIAL CELL,UR FEW /HPF (0-2); WBC,URINE 51-100 /HPF (0-1)
[2024-03-04 08:10] LABS: BASOPHILS # (AUTO) 0.07 K/uL (0.00-0.20); BASOPHILS % (AUTO) 0.6 % (0.0-5.0); EOSINOPHILS # (AUTO) 0.34 K/uL (0.00-0.70); EOSINOPHILS % (AUTO) 2.8 % (0.0-8.0); HEMATOCRIT 41.9 % (36-48); IMMATURE GRANULOCYTE ABSOLUTE 0.04 K/uL (0-1); LYMPHOCYTES # (AUTO) 2.1 K/uL (1.0-4.8); LYMPHOCYTES % (AUTO) 17.7 % (21.0-51.0); MEAN CORPUSCULAR HEMOGLOBIN 28.4 pg (27.0-33.0); MEAN CORPUSCULAR HGB CONC 33.2 g/dL (32.0-36.0); MEAN CORPUSCULAR VOLUME 85.5 fL (79-99); MONOCYTES # (AUTO) 0.5 K/uL (0.1-1.0); MONOCYTES % (AUTO) 4.1 % (3.0-13.0); NEUTROPHILS % (AUTO) 74.5 % (40.0-77.0); PLATELET COUNT (AUTO) 348 K/uL (130-400); RED CELL DISTRIBUTION WIDTH 13.2 % (11.0-15.5); WHITE BLOOD COUNT (AUTO) 12.1 K/uL (4.8-10.8)
[2024-03-04 08:25] LABS: CREATININE 0.7 mg/dL (0.5-1.0); POTASSIUM 4.7 mmol/L (3.5-5.1)
--- NOTE | 2024-03-04 08:30 | HMCIMG ---
CT ABDOMEN/PELVIS W/O CONTRAST REASON: ABD PAIN COMPARISON: None. FINDINGS: Lung bases are clear. There are no focal liver lesions. There are normal-appearing kidneys.. Spleen and pancreas appear unremarkable. The gallbladder appears normal as well. Bowel loops appear unremarkable. This includes normal appearance of the appendix There is no evidence of free fluid or intraperitoneal air. There are no focal fluid collections. There is extensive calcification of the abdominal aorta. There is extensive calcification at the origins of the celiac and superior mesenteric arteries, both appear severely stenotic. The left renal artery appears stenotic as well. There is no evidence of aortic aneurysm or stenosis. There are severe atherosclerotic changes in the common iliac arteries as well. There is no retroperitoneal or pelvic lymphadenopathy. Pelvic soft tissues appear unremarkable. The anterior abdominal wall is intact. Osseous structures appear unremarkable. IMPRESSION: 1. 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 2. No acute finding in the abdomen or pelvis. CT was performed with one or more following dose reduction techniques: automated exposure control, adjustment of the mA and kv according to patient's size, or use of a iterative reconstruction technique.
[2024-03-04] MEDS: 0.9%NACL 1000ML 1,000 ML IV ONE (08:46)
[2024-03-04] MEDS: CEFTRIAXONE 2GM VIAL IVPB ONE (10:15)
[2024-03-04] MEDS ORDERED: NITR100C4 PO (10:46)
[2024-03-04 10:58] VITALS: BP 117/57; PULSE 75; RESP 18; TEMP 98.4; O2SAT 98
== END 2024-03-04 11:10 | disposition home or self-care (01) ==
LOC: EDH 06:23
DX: N39.0 Urinary tract infection, site not specified (principal); E11.51 Type 2 diabetes mellitus with diabetic peripheral angiopathy without gangrene; E78.00 Pure hypercholesterolemia, unspecified; I10 Essential (primary) hypertension; J44.9 Chronic obstructive pulmonary disease, unspecified; M19.90 Unspecified osteoarthritis, unspecified site; Z79.899 Other long term (current) drug therapy; Z88.0 Allergy status to penicillin
CPT/HCPCS: 99285; 74176; 96365; 96361; 80048; 85025; 87086; 83605; 81001; 36415; J7030; J0696

== ENCOUNTER → 2024-05-21 | Outpatient (CLI) | payer MEDICAID ==
[~2024-05-21] MED LIST changes: -NAPR-1023 PO; +NAPR-1194 PO
== END | disposition home or self-care (01) ==
LOC: RAH 13:07
PROVIDERS: ATTEND Student in an Organized Health Care Education/Training Program
DX: I34.0 Nonrheumatic mitral (valve) insufficiency (principal); I20.9 Angina pectoris, unspecified
CPT/HCPCS: 93306

== ENCOUNTER 2024-06-28 01:41 | Emergency (ER) | payer MEDICAID ==
[~2024-06-28] VITALS: Ht 152.4 cm; Wt 57.6 kg
[2024-06-28 02:07] LABS: BASOPHILS # (AUTO) 0.07 K/uL (0.00-0.20); BASOPHILS % (AUTO) 0.9 % (0.0-5.0); EOSINOPHILS % (AUTO) 3.8 % (0.0-8.0); HEMATOCRIT 35.2 % (36-48); IMMATURE GRANULOCYTE ABSOLUTE 0.03 K/uL (0-1); LYMPHOCYTES # (AUTO) 2.2 K/uL (1.0-4.8); MEAN CORPUSCULAR HEMOGLOBIN 28.7 pg (27.0-33.0); MEAN CORPUSCULAR HGB CONC 33.5 g/dL (32.0-36.0); MEAN CORPUSCULAR VOLUME 85.6 fL (79-99); MONOCYTES # (AUTO) 0.4 K/uL (0.1-1.0); NEUTROPHILS % (AUTO) 62.9 % (40.0-77.0); PLATELET COUNT (AUTO) 316 K/uL (130-400); RED BLOOD CELL COUNT(AUTO) 4.11 MIL/uL (4.00-5.50); RED CELL DISTRIBUTION WIDTH 13.7 % (11.0-15.5)
[2024-06-28 02:19] LABS: CREATININE 0.8 mg/dL (0.5-1.0); POTASSIUM 4.2 mmol/L (3.5-5.1)
[2024-06-28] MEDS: MAG/ALUM/SIMETH 30 ML UDCUP PO ONE (02:19)
[2024-06-28] MEDS: LIDOCAINE HCL 2% VISCOUS 15 ML UDCUP PO ONE (02:19)
[2024-06-28] MEDS: ondanSETRON 4MG INJ IVP ONE (02:19)
[2024-06-28] MEDS: FAMOTIDINE 20MG VIAL IV ONE (02:19)
[2024-06-28 02:24] LABS: MAGNESIUM 1.6 mg/dL (1.80-2.40)
[2024-06-28 02:26] LABS: B-TYPE NATRIURETIC PEPTIDE 20 pg/mL (0-100)
--- NOTE | 2024-06-28 02:59 | ERN ---
General Chief Complaint: Chest Pain Stated Complaint: CHEST PAIN Time Seen by MD: 01:48 Time Seen by Midlevel: 01:48 Source: patient History of Present Illness Initial Comments The patient is a 63-year-old female presenting to the emergency department via EMS for evaluation of chest pain that started approximately 45 minutes prior to arrival. The chest pain is described as a burning sensation and radiates to the back. Pain is rated 10/10. One nitro sublingual given by EMS with no relief Allergies: Coded Allergies: amoxicillin (Unverified Allergy, Unknown, 09/16/18) Home Meds Active Scripts Nitrofurantoin Monohyd/M-Cryst (Macrobid 100 mg Capsule) 100 Mg Capsule, 1 CAP PO BID for 7 Days, #14 CAP 0 Refills Prov:KATARINA PARKS MD 03/04/24 Ibuprofen (Ibuprofen) 800 Mg Tablet, 800 MG PO Q8H PRN for PAIN, #30 TAB 0 Refills Prov:THEODORE SPEAR MD 09/27/23 Nitrofurantoin Monohyd/M-Cryst (Macrobid 100 mg Capsule) 100 Mg Capsule, 100 MG PO BID for 7 Days, #14 CAP Prov:THEODORE SPEAR MD 09/27/23 Ibuprofen (Ibuprofen) 600 Mg Tablet, 600 MG PO TID PRN for PAIN, #15 TAB 0 Refills Prov:IRVING MISTRY MD 01/17/22 Acetaminophen (Tylenol) 500 Mg Tab, 1000 MG PO BID PRN for HEADACHE for 10 Days, #20 TAB Prov:CIRO LECHUGAP 01/17/22 Reported Medications Methotrexate Sodium/Pf (Methotrexate 50 mg/2 ml Vial) 25 Mg/1 Ml Vial, 25 MG IJ QWEEK, VIAL 08/13/20 Lisinopril (Lisinopril) 30 Mg Tablet, 30 MG PO DAILY, TAB 08/13/20 Amlodipine Besylate (Amlodipine Besylate) 5 Mg Tablet, 5 MG PO DAILY, TAB 08/13/20 [Nebulizer] No Conflict Check 12/03/18 [Ventolin ] No Conflict Check 12/03/18 Amlodipine Besylate (Amlodipine Besylate) 5 Mg Tablet, 5 MG PO DAILY, TAB 12/03/18 Naproxen (Naproxen) 500 Mg Tablet, 500 MG PO BID, TAB 12/03/18 Ibuprofen (Ibuprofen 200 mg Tablet) 200 Mg Tablet, 200 MG PO DAILY PRN for PAIN LEVEL 6 TO 10, TAB 12/03/18 Lisinopril (Lisinopril) 30 Mg Tablet, 30 MG PO DAILY, TAB 12/03/18 Past Medical History Past Medical History: Asthma, COPD, High Cholesterol, Hypertension Medical History Other: PREDIABETIC Past Surgical History: None Family History Family History: Negative Social History Social History: ETOH Female( History) History: Not Applicable ROS Dictation CONSTITUTIONAL: Negative except for HPI HEAD/FACE: Negative except for HPI EENT: Negative except for HPI RESPIRATORY: Negative except for HPI GASTROINTESTINAL/ABDOMINAL: Negative except for HPI GENITOURINARY: Negative except for HPI MUSCULOSKELETAL: Negative except for HPI INTEGUMENTARY: Negative except for HPI NEUROLOGICAL/PSYCH: Negative except for HPI HEMATOLOGIC/LYMPHATIC: Negative except for HPI All Systems Negative, Except as noted above. 13 point review of systems assessed and all negative except for above. Physical Exam Physical Exam Dictation Vital Signs reviewed General Appearance: Alert, oriented x 3, no acute distress, well developed, nourished. Head and Face: non-traumatic. Eyes: PERRL, pink conjunctivas, eyelid no trauma, anterior chamber with arcus senilis. Ears: Pinnas intact and no signs of trauma or erythema ear canals clear and no discharge TM no erythema Nose: No discharge, no bleeding. Oropharynx: Mouth normal, tongue pink, pharynx clear,no erythema, tonsils no exudates, no abscesses noted, mucous membrane moist Neck: Supple, non-tender, no thyromegaly, no masses, no JVD, no bruits Breast:Deferred Chest:No tenderness, no crepitus, no paradoxical movement, no retractions Lungs:Clear, well-ventilated, symmetric, no rales, no wheezing, no rhonchi, no stridor, good breath sounds bilaterally Heart: Regular rate, regular rhythm, no murmur, no gallops Vascular: no peripheral edema, Abdomen: Soft, positive bowel sounds, nondistended, no guarding, nontender, no rebound, no masses no hepatomegaly, no splenomegaly, no Villavicencio's sign, no hernias. Rectal: Deferred Genital: Deferred Neurological: Normal speech, motor function intact, sensory function intact Musculoskeletal: Neck nontender, full range of motion, back nontender, full range of motion, Extremities: nontender, full range of motion Skin: Color pink, dry, no turgor, no rash, no lacerations, no abrasions, no contusions. Lymphatic: Deferred Results Laboratory and Microbiology Lab and Micro Result Laboratory Tests Test 06/28/24 01:54 White Blood Count 8.0 K/uL (4.8-10.8) Red Blood Count 4.11 MIL/uL (4.00-5.50) Hemoglobin 11.8 g/dL (12.0-16.0) L Hematocrit 35.2 % (36-48) L Mean Corpuscular Volume 85.6 fL (79-99) Mean Corpuscular Hemoglobin 28.7 pg (27.0-33.0) Mean Corpuscular Hemoglobin Concent 33.5 g/dL (32.0-36.0) Red Cell Distribution Width 13.7 % (11.0-15.5) Platelet Count 316 K/uL (130-400) Mean Platelet Volume 9.1 fL (7.5-10.5) Immature Granulocyte % (Auto) 0.4 % (0-1) Neutrophils (%) (Auto) 62.9 % (40.0-77.0) Lymphocytes (%) (Auto) 27.0 % (21.0-51.0) Monocytes (%) (Auto) 5.0 % (3.0-13.0) Eosinophils (%) (Auto) 3.8 % (0.0-8.0) Basophils (%) (Auto) 0.9 % (0.0-5.0) Neutrophils # (Auto) 5.0 K/uL (1.8-7.7) Lymphocytes # (Auto) 2.2 K/uL (1.0-4.8) Monocytes # (Auto) 0.4 K/uL (0.1-1.0) Eosinophils # (Auto) 0.30 K/uL (0.00-0.70) Basophils # (Auto) 0.07 K/uL (0.00-0.20) Absolute Immature Granulocyte (auto 0.03 K/uL (0-1) Nucleated Red Blood Cells 0.0 % (0.0-0.19) Sodium Level 131 mmol/L (136-145) L Potassium Level 4.2 mmol/L (3.5-5.1) Chloride Level 97 mmol/L (101-111) L Carbon Dioxide Level 26 mmol/L (21-32) Blood Urea Nitrogen 8 mg/dL (7-18) Creatinine 0.8 mg/dL (0.5-1.0) Glomerular Filtration Rate Calc 83 mL/min (>90) Random Glucose 108 mg/dL (70-105) H Total Calcium 8.6 mg/dL (8.5-10.1) Troponin I High Sensitivity 7 ng/L (4-50) B-Type Natriuretic Peptide 20 pg/mL (0-100) Labs Reviewed?: Yes MDM MDM: The patient is a 63-year-old female presenting to the emergency department via EMS for evaluation of chest pain that started approximately 45 minutes prior to arrival. The chest pain is described as a burning sensation and radiates to the back. Pain is rated 10/10. One nitro sublingual given by EMS with no relief On physical examination the patient is in no acute distress. Vital signs are stable. Chest pain is described as a burning sensation that starts in the epigastric region and radiates up. Cardiac workup initiated. EKG shows normal sinus rhythm with a ventricular rate of 73 beats per minute, no bundle branch blocks, no ST elevations. Cardiac enzymes are negative. CBC and chemistries are stable. Patient given a GI cocktail and feels significantly improved. Symptoms appear to be GI in nature. We will discharged home with close return precautions. Differential diagnosis: ACS, gastritis, GERD, angina There are no social concerns with this patient. Prescription drug management Prescriptions will include: None Medical management and examination interpretation discussions were had by me with other qualified healthcare professionals as indicated for the patient's care. ED Course Orders Procedure Category Date Status Time 12 Lead Ekg Tracing- EKG 06/28/24 Logged Technical 01:48 Cbc With Differential LAB 06/28/24 Complete 01:48 Basic Metabolic Panel LAB 06/28/24 In Process 01:48 Troponin I High LAB 06/28/24 Complete Sensitivity 01:48 B-Type Natriuretic LAB 06/28/24 Complete Peptide 01:48 Creatine Kinase, Total LAB 06/28/24 In Process 01:48 Magnesium LAB 06/28/24 In Process 01:48 Chest 1vw RAD 06/28/24 Taken 01:48 Ondansetron 4mg Inj PHA 06/28/24 Complete (Zofran 4mg Inj) 02:00 Famotidine 20mg Vial PHA 06/28/24 Complete (Pepcid 20mg Vial) 02:00 Lidocaine Hcl 2% PHA 06/28/24 Complete Viscous (Lidocaine Hcl 02:00 Mag/Alum/Simeth 30ml PHA 06/28/24 Complete (Maalox Plus 30ml) 02:00 Current Medications Medications (Trade) Dose Ordered Sig/Sheila Route PRN Reason Start Time Stop Time Status Last Admin Dose Admin Al Hydroxide/Mg Hydroxide (MAALox PLUS 30ML) 30 ml ONCE ONCE PO 06/28/24 02:00 06/28/24 02:01 DC 06/28/24 02:19 Famotidine (Pepcid 20mg Vial) 20 mg ONCE ONCE IV 06/28/24 02:00 06/28/24 02:01 DC 06/28/24 02:19 Lidocaine HCl (Lidocaine HCl 2% Viscous) 10 ml ONCE ONCE PO 06/28/24 02:00 06/28/24 02:01 DC 06/28/24 02:19 Ondansetron HCl (zoFRAN 4MG INJ) 4 mg ONCE ONCE IVP 06/28/24 02:00 06/28/24 02:01 DC 06/28/24 02:19 Vital Signs Date Time Temp Pulse Resp B/P (MAP) Pulse Ox O2 Delivery O2 Flow Rate FiO2 06/28/24 01:52 98.2 85 18 124/64 95 Room Air 0 HEART Score Response (Comments) Value History: Moderate suspicion (+1) 1 EKG: Normal 0 Age: 45-65yrs (+1) 1 Risk Factors: 1-2 risk factors (+1) 1 Initial Troponin: Normal limit (0) 0 HEART Score Risk: Low Risk for MACE (1-3) Total 3 DX & DISP Disposition: Discharge Departure Impression: Primary Impression: Non-cardiac chest pain Condition: Stable Referrals: TAMMY DISLA (PCP) Time of Disposition: 02:57 I have reviewed the case, and I agree with, Diagnosis and Plan I performed the substantive portion of the visit. I have reviewed and personally made and approve the management plan that is documented in the note by myself or the SUZANNE. I acknowledge for responsibility for the patient's management plan. CHIDI VAZQUEZ June 28, 2024 02:59
[2024-06-28] MEDS ORDERED: FAMO-136 PO (03:09)
[2024-06-28] MEDS ORDERED: ONDA-243 PO (03:09)
[2024-06-28 03:47] VITALS: BP 112/57; PULSE 78; RESP 18; TEMP 98.3; O2SAT 96
--- NOTE | 2024-06-28 06:52 | EKG ---
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
--- NOTE | 2024-06-28 12:00 | HMCIMG ---
CHEST 1VW HISTORY: Chest pain COMPARISON: 09/27/2023 FINDINGS: A frontal projection of the chest was obtained. There are mild bilateral pulmonary infiltrates suggestive of pulmonary vascular congestion with possible superimposed pneumonitis. The heart is borderline enlarged. Degenerative changes are seen No evidence of aortic calcification is seen. IMPRESSION: 1. Bilateral pulmonary infiltrates are seen suggestive of pulmonary vascular congestion with possible superimposed pneumonitis.
== END 2024-06-28 03:48 | disposition home or self-care (01) ==
LOC: EDH 01:41
DX: R07.89 Other chest pain (principal); E78.00 Pure hypercholesterolemia, unspecified; I10 Essential (primary) hypertension; J44.9 Chronic obstructive pulmonary disease, unspecified; J45.909 Unspecified asthma, uncomplicated; Z79.899 Other long term (current) drug therapy; Z88.0 Allergy status to penicillin
CPT/HCPCS: 99285; 96374; 71045; 96375; 82550; 83735; 84484; 80048; 83880; 85025; 36415; 93005; J3490; J2405

== ENCOUNTER 2024-07-15 06:26 | Day surgery (SDC) | payer MEDICAID ==
[2024-07-11 10:20] VITALS: BP 137/62; PULSE 74; RESP 18; TEMP 98.2
[2024-07-11 10:28] LABS: BASOPHILS # (AUTO) 0.08 K/uL (0.00-0.20); BASOPHILS % (AUTO) 0.9 % (0.0-5.0); EOSINOPHILS # (AUTO) 0.39 K/uL (0.00-0.70); EOSINOPHILS % (AUTO) 4.2 % (0.0-8.0); HEMATOCRIT 38.8 % (36-48); IMMATURE GRANULOCYTE ABSOLUTE 0.03 K/uL (0-1); LYMPHOCYTES # (AUTO) 2.1 K/uL (1.0-4.8); LYMPHOCYTES % (AUTO) 22.8 % (21.0-51.0); MEAN CORPUSCULAR HEMOGLOBIN 28.2 pg (27.0-33.0); MEAN CORPUSCULAR HGB CONC 32.7 g/dL (32.0-36.0); MONOCYTES # (AUTO) 0.4 K/uL (0.1-1.0); MONOCYTES % (AUTO) 4.2 % (3.0-13.0); NEUTROPHILS # (AUTO) 6.3 K/uL (1.8-7.7); NEUTROPHILS % (AUTO) 67.6 % (40.0-77.0); PLATELET COUNT (AUTO) 345 K/uL (130-400); RED BLOOD CELL COUNT(AUTO) 4.51 MIL/uL (4.00-5.50); RED CELL DISTRIBUTION WIDTH 14.2 % (11.0-15.5); WHITE BLOOD COUNT (AUTO) 9.4 K/uL (4.8-10.8)
--- NOTE | 2024-07-11 10:31 | EKG ---
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
[2024-07-11 10:38] LABS: CREATININE 0.7 mg/dL (0.5-1.0); POTASSIUM 4.7 mmol/L (3.5-5.1)
[2024-07-11 10:39] LABS: INR 1.01 (0.85-1.15); PROTHROMBIN TIME 10.7 SEC (9.6-11.6)
[2024-07-11 10:41] LABS: PARTIAL THROMBOPLASTIN TIME 31.3 SEC (26.3-35.5)
[~2024-07-15 06:26] MED LIST changes: -ACET-66 PO; +ALEN70TA80 PO; +ATOR20TA65 PO; +FAMO-136 PO; +HYDR200T75 PO; -IBUP-2070 PO; -IBUP-2071 PO; -IBUP-2784 PO; -METH25VI67 IJ; -NAPR-1194 PO; -NEBULIZER; -NITR100C4 PO; +ONDA-243 PO; -VENTOLIN
[2024-07-15 06:45] VITALS: BP 145/59; PULSE 69; RESP 17; TEMP 97.4
[2024-07-15] MEDS: 0.9%NACL 1000ML 1,000 ML IV SCH (07:26)
[2024-07-15] MEDS: LIDOCAINE HCL 2% VISCOUS 15 ML UDCUP PO ONE (07:26)
--- NOTE | 2024-07-15 09:26 | NUR ---
MAINOR PROBE ADVANCED PT TOLERATED WELL NAD VSS
--- NOTE | 2024-07-15 09:37 | NUR ---
BUBBLE STUDY DONE
--- NOTE | 2024-07-15 09:38 | NUR ---
MAINOR PERFORMED PT TOLERATED WELL NAD VSS
[2024-07-15 09:40] VITALS: BP 124/56; PULSE 79; RESP 16; TEMP 97.5
[2024-07-15 09:55] VITALS: BP 124/56; PULSE 79; RESP 15
[2024-07-15] MEDS: MIDAZOLAM HCL 1 MG/ML 2ML VIAL IVP ONE (09:57)
[2024-07-15] MEDS: FENTanyl CITRate PF 50 MCG/1 ML 2ML VIAL IVP ONE (09:58)
[2024-07-15 10:10] VITALS: BP 117/56; PULSE 79; RESP 15
[2024-07-15 10:25] VITALS: BP 102/58; PULSE 79; RESP 14
[2024-07-15 10:40] VITALS: BP 103/55; PULSE 83; RESP 16
--- NOTE | 2024-07-15 17:07 | HMCSR ---
APPROVED REPORT EXAM: Transesophageal echocardiogram with color flow Doppler. INDICATION ICD: R07.9 Chest pain Reason For Test : Rule out Intracardiac Thrombus. PROCEDURE After obtaining informed consent, patient underwent transesophageal echo in the [facility] Room 16 . 15 mL 2% Viscous Lidocaine was given as a topical anesthetic prior to the administration of the consc ious sedation. Type of Sedation: Conscious Sedation Sedation was administered by please refer to medication administration record. . Sedation was achieved with please refer to medication administration record. intravenously. Transesophageal probe was inserted and advanced into esophagus without difficulty by Dar Kennedy MD . Echo enhancement indication: R/O Septal defect. Echo enhancement agent administered: Agitated Saline. MAINOR was performed and images were obtained, probe was removed without complications. Throughout the procedure, the blood pressure, pulse oximetry, cardiac rhythm, and rate were monitored . Left Ventricle The left ventricle is normal size. There is normal LV segmental wall motion. There is normal left lata tricular wall thickness. The LVEF is > 55%. Not assessed. Right Ventricle The right ventricle is normal size. The right ventricular systolic function is normal. Atria The left atrium size is normal. Left atrial appendage thrombus noted. Evidence of PFO/ASD by agitated saline. The right atrium size is normal. Cannot exclude thrombus on right atrium. Aortic Valve The aortic valve is normal in structure. No aortic regurgitation is present. There is no aortic valvu lar stenosis. Mitral Valve Mitral valve leaflets open well. Mild posterior annular calcification noted. There is trace mitral va lve regurgitation noted. There is no mitral valve stenosis. Tricuspid Valve The tricuspid valve is normal in structure. There is trace of tricuspid valve regurgitation noted. Pulmonic Valve The pulmonary valve is normal in structure. There is no pulmonic valvular regurgitation. Great Vessels The aortic root is normal in size. The IVC was not visualized. Pericardium There is no pericardial effusion. Conclusion The left ventricle is normal size. The LVEF is > 55% with normal LV segmental wall motion. The right ventricular systolic function is normal. Both atria appear normal in size. There is a TAINA thrombus noted. Cannot exclude right atrial thrombus. Evidence of PFO/ASD by agitated saline. No hemodynamically significant valvular abnormalities. There is no pericardial effusion. Plan for CCTA to further assess TAINA thrombus and possible RA thrombus
[2024-08-10] MEDS ORDERED: APIX5TAB PO (03:05)
[2024-08-11] MEDS ORDERED: CIPR-514 PO (16:52)
[2024-08-14] MEDS ORDERED: CEPH500T PO (16:24)
== END 2024-07-15 10:40 | disposition home or self-care (01) ==
LOC: DAH 06:26
PROVIDERS: ATTEND Student in an Organized Health Care Education/Training Program
DX: R07.9 Chest pain, unspecified (principal); I35.0 Nonrheumatic aortic (valve) stenosis; I51.3 Intracardiac thrombosis, not elsewhere classified; M79.605 Pain in left leg; I10 Essential (primary) hypertension; E78.5 Hyperlipidemia, unspecified; Z88.1 Allergy status to other antibiotic agents; Z79.899 Other long term (current) drug therapy
CPT/HCPCS: 80048; 85025; 85610; 85730; 36415; 93005; 99152; 82948; 93325; 93312; A4223 ×3; J3010; J7030; J2250; A4615; A4215; A4657; A4222; A4221; A4663; A4216; A4606; G0500